=== PATIENT | male | born 1970 | race Caucasian/White ===

== ENCOUNTER → 2016-10-05 | Outpatient (CLI) | payer MEDICARE, OTHER | LOC: CT 11:30 | DX: R51 Headache (principal); I67.1 Cerebral aneurysm, nonruptured | CPT/HCPCS: 70496; J7050; Q9963 ==

== ENCOUNTER 2016-12-17 12:46 | Emergency (ER) | payer MEDICARE, OTHER | END 2016-12-17 16:45 | disposition home or self-care (01) | LOC: ER1 12:46 | DX: I67.1 Cerebral aneurysm, nonruptured (principal); F17.210 Nicotine dependence, cigarettes, uncomplicated | CPT/HCPCS: 70496; 93005; 96361; 96374; 96375; 99284; J2405; J7050; Q9963 ==

== ENCOUNTER 2016-12-31 13:37 | Emergency (ER) | payer MEDICARE, OTHER ==
[2016-12-31 14:45] LABS: RED BLOOD COUNT 4.83 M/UL (4.20-5.50)
[2016-12-31 15:28] LABS: BUN/CREATININE RATIO 16 (0-10)
== END 2016-12-31 15:20 | disposition short-term general hospital (02) ==
LOC: ER1 13:37
PROVIDERS: Physician Assistant Medical
DX: S29.9XXA Unspecified injury of thorax, initial encounter (principal); I10 Essential (primary) hypertension; F17.210 Nicotine dependence, cigarettes, uncomplicated; W11.XXXA Fall on and from ladder, initial encounter
CPT/HCPCS: 36415; 71010; 80053; 85025; 96374; 96375; 99284; J2060; J2270; J2405; Q9962

== ENCOUNTER → 2020-09-21 | Day surgery (SDC) | payer MEDICARE, OTHER ==
[~2020-09-21] VITALS: Ht 177.8 cm; Wt 112.5 kg
[~2020-09-21] MED LIST: AMLODIPINE BESY10 MG PO; ASPIRIN CHEWABL81 MG PO; AZITHROMYCIN250 MG PO; BENTYL 20MG TAB20 MG PO; BUSPAR 5MG TABLE5 MG PO; CHANTIX0.5 MG PO; CLONAZEPAM1 MG PO; DILANTIN100 MG PO; EPIPEN 2-P0.3 MG/0.3 INJ; FLEXERIL 10 MG10 MG PO; GABAPENTIN800 MG PO; IMDUR ER TAB 3030 MG PO; LODINE CAP 300300 MG PO; NORVASC10 MG PO; OMEPRAZOLE20 MG PO; SERTRALINE HCL25 MG PO; SUBOXONE 8 MG-1 EACH SL; SULFAMETHOXAZO1 EACH PO; TRAZODONE HCL100 MG PO; VENTOLIN HFA 66.7 GM INH; VITAMIN D31000 UNI1 PO; VITAMIN D350 MC3 PO; ZOFRAN ODT 4 MG4 MG PO
== END | disposition home or self-care (01) ==
LOC: OR 06:13
DX: K29.50 Unspecified chronic gastritis without bleeding (principal); B96.81 Helicobacter pylori [H. pylori] as the cause of diseases classified elsewhere; D12.3 Benign neoplasm of transverse colon; K57.30 Diverticulosis of large intestine without perforation or abscess without bleeding; K21.9 Gastro-esophageal reflux disease without esophagitis; I25.10 Atherosclerotic heart disease of native coronary artery without angina pectoris; I10 Essential (primary) hypertension; E78.5 Hyperlipidemia, unspecified; M19.90 Unspecified osteoarthritis, unspecified site; F41.8 Other specified anxiety disorders; Z79.899 Other long term (current) drug therapy
CPT/HCPCS: 88342; J2704; J7030

== ENCOUNTER 2021-01-29 15:37 | Emergency (ER) | payer MEDICARE, OTHER ==
[~2021-01-29 15:37] MED LIST changes: -AZITHROMYCIN250 MG PO
[2021-01-29 20:16] LABS: HEMOGLOBIN 13.9 gm/dl (14.0-17.5); RED BLOOD COUNT 4.52 M/UL (4.20-5.50); WHITE BLOOD COUNT 8.1 K/UL (4.5-11.0)
[2021-01-29 20:51] LABS: BUN/CREATININE RATIO 16 (0-10)
[2021-01-29] MEDS ORDERED: AZITHROMYCIN250 MG PO (22:10)
== END 2021-01-29 23:00 | disposition home or self-care (01) ==
LOC: ER1 15:37
PROVIDERS: Physician Assistant
DX: J18.9 Pneumonia, unspecified organism (principal); M79.89 Other specified soft tissue disorders; F17.200 Nicotine dependence, unspecified, uncomplicated; Z88.8 Allergy status to other drugs, medicaments and biological substances; Z20.822 Contact with and (suspected) exposure to COVID-19
CPT/HCPCS: 0240U; 71046; 80053; 80185; 82150; 83690; 83880; 85025; 85610; 96372; 96374; 99284; J0696; J1650; Q9967

== ENCOUNTER → 2021-01-30 | Outpatient (CLI) | payer MEDICARE, OTHER ==
[~2021-01-30] MED LIST changes: +AZITHROMYCIN250 MG PO
== END ==
LOC: US 09:56
DX: M79.601 Pain in right arm (principal); R22.31 Localized swelling, mass and lump, right upper limb
CPT/HCPCS: 93971

== ENCOUNTER 2021-05-29 11:21 | Emergency (ER) | payer MEDICARE, OTHER ==
[2021-05-29 12:48] LABS: HEMOGLOBIN 14.5 gm/dl (14.0-17.5); RED BLOOD COUNT 4.91 M/UL (4.20-5.50); WHITE BLOOD COUNT 5.2 K/UL (4.5-11.0)
[2021-05-29 13:42] LABS: BUN/CREATININE RATIO 15 (0-10)
[2021-05-29] MEDS ORDERED: NAPROSYN500 MG PO (15:06)
== END 2021-05-29 17:20 | disposition home or self-care (01) ==
LOC: ER1 11:21
PROVIDERS: Physician Assistant
DX: S03.03XA Dislocation of jaw, bilateral, initial encounter (principal); S20.211A Contusion of right front wall of thorax, initial encounter; F17.200 Nicotine dependence, unspecified, uncomplicated; W14.XXXA Fall from tree, initial encounter
CPT/HCPCS: 70486; 71045; 71250; 71260; 80053; 85025; 93005; 96374; 96375; 99284; J1885; J2270; J2405; Q9967

== ENCOUNTER 2021-11-25 13:04 | Emergency (ER) | payer MEDICARE, OTHER ==
[~2021-11-25 13:04] MED LIST changes: +NAPROSYN500 MG PO
== END 2021-11-25 18:16 | disposition left against medical advice (07) ==
LOC: ER1 13:04
DX: R07.1 Chest pain on breathing (principal)
CPT/HCPCS: 93005; 99281

== ENCOUNTER → 2022-02-08 | Outpatient (CLI) | payer MEDICARE, OTHER | LOC: EXRD 10:22 | DX: M54.50 Low back pain, unspecified (principal); M54.2 Cervicalgia; M47.816 Spondylosis without myelopathy or radiculopathy, lumbar region | CPT/HCPCS: 72050; 72110 ==